=== PATIENT | female | born 1970 | race Asian ===

== ENCOUNTER 2022-05-04 08:02 | Outpatient (CLI) | payer BC | END 2022-05-04 08:03 | disposition home or self-care (01) | LOC: CSHMAMMO 08:02 | PROVIDERS: ATTEND Family Medicine | DX: Z12.31 Encounter for screening mammogram for malignant neoplasm of breast (principal) | CPT/HCPCS: 77063; 77067 ==

== ENCOUNTER 2023-01-10 08:30 | Outpatient (CLI) | payer BC | END 2023-01-10 08:31 | disposition home or self-care (01) | LOC: CSHCT 08:30 | PROVIDERS: ATTEND Student in an Organized Health Care Education/Training Program | DX: R42 Dizziness and giddiness (principal) | CPT/HCPCS: 70470 ==

== ENCOUNTER 2023-07-31 09:00 | Outpatient (CLI) | payer BC | END 2023-07-31 09:01 | disposition home or self-care (01) | LOC: CSHMAMMO 09:00 | PROVIDERS: ATTEND Student in an Organized Health Care Education/Training Program | DX: Z12.31 Encounter for screening mammogram for malignant neoplasm of breast (principal) | CPT/HCPCS: 77063; 77067 ==